=== PATIENT | female | born 1995 | race Caucasian/White ===

== ENCOUNTER 2016-05-02 00:11 | Emergency (ER) | payer SELFPAY ==
[~2016-05-02] VITALS: Ht 144.8 cm; Wt 88.5 kg
[2016-05-02] MEDS ORDERED: ONDANSETRON 2MG/ML, 2ML ONE (00:57)
[2016-05-02] MEDS ORDERED: SODIUM CHLORIDE 0.9% 1,000ML IVBOLUS ONE ×2 (01:00→03:00)
[2016-05-02] MEDS ORDERED: SODIUM CHLORIDE FLUSH 10ML SYR IVF ONE (01:00)
[2016-05-02] MEDS ORDERED: ONDANSETRON 2MG/ML, 2ML IVPush ONE (01:00)
[2016-05-02 01:23] LABS: HEMOGLOBIN 12.1 g/dL (11.7-16.4)
[2016-05-02 01:33] LABS: ASPARTATE AMINO TRANSFERASE 15 U/L (15-37); BLOOD UREA NITROGEN 9 mg/dL (7-18)
[2016-05-02] MEDS ORDERED: KETOROLAC 30 MG/1 ML ONE (02:20)
[2016-05-02 02:27] VITALS: BP 124/75
[2016-05-02 02:29] LABS: PATH.CAST-FLAG NOT PRESENT; SPERM-FLAG NOT PRESENT; SRC-FLAG NOT PRESENT; XTAL-FLAG NOT PRESENT; YLC-FLAG NOT PRESENT
[2016-05-02] MEDS ORDERED: KETOROLAC 30 MG/1 ML IVPush ONE (02:30)
== END 2016-05-02 03:03 | disposition home or self-care (01) ==
LOC: ED 01:41
DX: K29.00 Acute gastritis without bleeding (principal); K59.00 Constipation, unspecified
CPT/HCPCS: 36415; 74020; 80053; 83690; 84703; 85025; 87077; 87086; 96361; 96374; 99285; J1885; J7030; 87186

== ENCOUNTER 2017-08-30 15:45 | Inpatient (IN) | payer OTHER ==
[~2017-08-30] VITALS: Ht 144.8 cm; Wt 89.6 kg
[~2017-08-30 15:45] MED LIST: AZITHROMYCIN 500 MG TABLET PO ONE
[2017-08-30] MEDS ORDERED: ONDANSETRON 2MG/ML, 2ML IVPush ONE (16:00)
[2017-08-30] MEDS ORDERED: SODIUM CHLORIDE FLUSH 10ML SYR IVF ONE (16:00)
[2017-08-30] MEDS ORDERED: SODIUM CHLORIDE 0.9% 1,000ML IVBOLUS ONE (16:00)
[2017-08-30] MEDS ORDERED: DEXAMETHASONE 4 MG/ML, 5ML ONE (16:19)
[2017-08-30] MEDS ORDERED: ONDANSETRON 2MG/ML, 2ML ONE (16:19)
[2017-08-30] MEDS ORDERED: KETOROLAC 30 MG/1 ML ONE (16:19)
[2017-08-30 16:26] LABS: MEAN CORPUSCULAR HEMOGLOBIN 25.8 pg (27.0-34.8); MEAN CORPUSCULAR HGB CONC 33.9 g/dL (32.4-35.8); PLATELET COUNT 415 x10^3/uL (130-400); RED BLOOD COUNT 5.21 x10^6/uL (3.82-5.3); RED CELL DISTRIBUTION WIDTH 13.7 % (9.6-15.2)
[2017-08-30] MEDS ORDERED: maalox/diphenh/lido/sucralfate 5 ML PO PRN (16:30)
[2017-08-30] MEDS ORDERED: KETOROLAC 30 MG/1 ML IVPush ONE (16:30)
[2017-08-30] MEDS ORDERED: DEXAMETHASONE 4 MG/ML, 1ML IVPush ONE (16:30)
[2017-08-30 16:36] LABS: ALANINE AMINOTRANSFERASE 24 U/L (12-78); ALBUMIN 3.9 g/dL (3.4-5.0); ANION GAP 10 mmol/L (5-15); CALCIUM 9.3 mg/dL (8.5-10.1); CHLORIDE 105 mmol/L (98-107); CREATININE 0.65 mg/dL (0.55-1.02)
[2017-08-30 16:41] LABS: ALKALINE PHOSPHATASE 94 U/L (45-117); BILIRUBIN,TOTAL 0.8 mg/dL (0.2-1.0); TOTAL PROTEIN 8.6 g/dL (6.4-8.2)
[2017-08-30 16:42] LABS: BASOPHILS # (AUTO) 0.07 x10^3/uL (0-0.1); BASOPHILS % (AUTO) 0 % (0-1); EOSINOPHILS # (AUTO) 0.04 x10^3/uL (0-0.4); EOSINOPHILS % (AUTO) 0 % (1-7); LYMPHOCYTES % (AUTO) 16 % (22-44); MD SCAN; MONOCYTES # (AUTO) 0.95 x10^3/uL (0.2-0.8); MONOCYTES % (AUTO) 5 % (2-9); NEUTROPHILS # (AUTO) 15.25 x10^3/uL (1.8-6.8); NEUTROPHILS % (AUTO) 78 % (42-75)
[2017-08-30] MEDS ORDERED: AMPICILLIN/SULBACTAM 3 GM in SODIUM CHLORIDE 0.9% 100 ML IV ONE (17:30)
[2017-08-30] MEDS ORDERED: POLYETHYLENE GLYCOL 17 GM PACKET PO PRN (18:30)
[2017-08-30] MEDS ORDERED: BISACODYL 10 MG SUPP PR PRN (18:30)
[2017-08-30] MEDS ORDERED: ONDANSETRON 2MG/ML, 2ML IVPush PRN (18:30)
[2017-08-30] MEDS ORDERED: ACETAMINOPHEN 325 MG TABLET PO PRN (18:30)
[2017-08-30] MEDS ORDERED: KETOROLAC 30 MG/1 ML IVPush PRN (19:00)
[2017-08-30] MEDS ORDERED: PLEASE ENTER HEIGHT MC SCH (19:00)
[2017-08-30 19:55] VITALS: BP 98/61
[2017-08-30 20:20] LABS: CULTURE INDICATED? YES; MICROSCOPIC INDICATED
[2017-08-30] MEDS: PLEASE ENTER HEIGHT MC SCH (21:10)
[2017-08-30] MEDS: SODIUM CHLORIDE 0.9% 1,000 ML IV SCH (21:10)
[2017-08-30] MEDS ORDERED: AZITHROMYCIN 500 MG TABLET PO ONE (22:00)
[2017-08-31 01:01] VITALS: BP 111/57
[2017-08-31] MEDS: SODIUM CHLORIDE 0.9% 1,000 ML IV SCH (05:10)
[2017-08-31 05:42] LABS: BASOPHILS # (AUTO) 0.03 x10^3/uL (0-0.1); BASOPHILS % (AUTO) 0 % (0-1); EOSINOPHILS % (AUTO) 0 % (1-7); LYMPHOCYTES # (AUTO) 1.43 x10^3/uL (1-3.4); LYMPHOCYTES % (AUTO) 12 % (22-44); MD NO; MEAN CORPUSCULAR HEMOGLOBIN 25.8 pg (27.0-34.8); MEAN CORPUSCULAR HGB CONC 33.5 g/dL (32.4-35.8); MEAN CORPUSCULAR VOLUME 77.1 fL (80-100); MEAN PLATELET VOLUME 8.3 fL (7.4-10.4); MONOCYTES # (AUTO) 0.37 x10^3/uL (0.2-0.8); MONOCYTES % (AUTO) 3 % (2-9); NEUTROPHILS # (AUTO) 10.27 x10^3/uL (1.8-6.8); NEUTROPHILS % (AUTO) 85 % (42-75); PLATELET COUNT 347 x10^3/uL (130-400); RED BLOOD COUNT 4.24 x10^6/uL (3.82-5.3); RED CELL DISTRIBUTION WIDTH 14.1 % (9.6-15.2)
[2017-08-31 05:46] LABS: ALANINE AMINOTRANSFERASE 20 U/L (12-78); ANION GAP 8 mmol/L (5-15); CALCIUM 8.4 mg/dL (8.5-10.1); CHLORIDE 113 mmol/L (98-107)
[2017-08-31 05:48] LABS: ALKALINE PHOSPHATASE 72 U/L (45-117); BILIRUBIN,TOTAL 0.4 mg/dL (0.2-1.0); CREATININE 0.64 mg/dL (0.55-1.02); TOTAL PROTEIN 7.1 g/dL (6.4-8.2)
[2017-08-31] MEDS ORDERED: FERROUS SULFATE 325 MG TABLET PO SCH (08:00)
[2017-08-31 08:02] VITALS: BP 99/60
[2017-08-31] MEDS ORDERED: CEFTRIAXONE 250 MG IM ONE (08:30)
[2017-08-31] MEDS ORDERED: SENNA/DOCUSATE TABLET PO SCH (09:00)
[2017-08-31] MEDS ORDERED: DOXY100T PO (10:16)
== END 2017-08-31 13:10 | disposition home or self-care (01) | DRG 872 ==
LOC: ED 17:36 → EDIP 17:37 → ED 17:45 → 3NE 18:13 → DCLOUNGE 08-31 12:50
PROVIDERS: ADMIT Internal Medicine; ATTEND Internal Medicine
DX: A41.9 Sepsis, unspecified organism (principal); Z68.41 Body mass index [BMI] 40.0-44.9, adult; E87.1 Hypo-osmolality and hyponatremia; E66.9 Obesity, unspecified; E86.0 Dehydration; R13.10 Dysphagia, unspecified; D47.3 Essential (hemorrhagic) thrombocythemia
CPT/HCPCS: 36415; 71046; 80053; 81001; 82728; 83540; 83550; 83605; 83690; 84703; 85025; 85379; 87040; 87070; 87081; 87086; 87147; 87491; 87591; 87880; 96361; 96374; 96375; J0295; J0696; J1100; J1885; J2405; J7030

== ENCOUNTER 2017-09-16 11:10 | Emergency (ER) | payer SELFPAY ==
[~2017-09-16] VITALS: Ht 147.3 cm; Wt 86.4 kg
[~2017-09-16 11:10] MED LIST changes: -AZITHROMYCIN 500 MG TABLET PO ONE; +DOXY100T PO
[2017-09-16 12:34] LABS: BASOPHILS # (AUTO) 0.03 x10^3/uL (0-0.1); BASOPHILS % (AUTO) 0 % (0-1); EOSINOPHILS # (AUTO) 0.18 x10^3/uL (0-0.4); EOSINOPHILS % (AUTO) 2 % (1-7); LYMPHOCYTES # (AUTO) 3.02 x10^3/uL (1-3.4); LYMPHOCYTES % (AUTO) 37 % (22-44); MD NO; MEAN CORPUSCULAR HEMOGLOBIN 25.7 pg (27.0-34.8); MEAN CORPUSCULAR HGB CONC 33.8 g/dL (32.4-35.8); MEAN PLATELET VOLUME 7.9 fL (7.4-10.4); MONOCYTES # (AUTO) 0.41 x10^3/uL (0.2-0.8); MONOCYTES % (AUTO) 5 % (2-9); NEUTROPHILS # (AUTO) 4.63 x10^3/uL (1.8-6.8); NEUTROPHILS % (AUTO) 56 % (42-75); PLATELET COUNT 363 x10^3/uL (130-400); RED BLOOD COUNT 4.39 x10^6/uL (3.82-5.3); RED CELL DISTRIBUTION WIDTH 14.4 % (9.6-15.2)
[2017-09-16 12:46] LABS: ALBUMIN 3.4 g/dL (3.4-5.0); ANION GAP 7 mmol/L (5-15); CALCIUM 8.5 mg/dL (8.5-10.1); CHLORIDE 109 mmol/L (98-107)
[2017-09-16 12:52] LABS: ALANINE AMINOTRANSFERASE 31 U/L (12-78); ALKALINE PHOSPHATASE 82 U/L (45-117); BILIRUBIN,TOTAL 0.4 mg/dL (0.2-1.0); CREATININE 0.55 mg/dL (0.55-1.02); TOTAL PROTEIN 7.4 g/dL (6.4-8.2)
[2017-09-16 13:17] LABS: MICROSCOPIC NOT IND
[2017-09-16 13:29] LABS: CULTURE INDICATED? NO
[2017-09-16 14:33] VITALS: BP 119/76
== END 2017-09-16 14:43 | disposition home or self-care (01) ==
LOC: ED 11:57
DX: K25.3 Acute gastric ulcer without hemorrhage or perforation (principal)
CPT/HCPCS: 36415; 80053; 81003; 83690; 84703; 85025; 86677; 99284

== ENCOUNTER 2017-11-05 12:37 | Emergency (ER) | payer SELFPAY ==
[~2017-11-05] VITALS: Ht 147.3 cm; Wt 91.6 kg
[2017-11-05 12:58] VITALS: BP 116/66
[2017-11-05] MEDS ORDERED: METOCLOPRAMIDE 5 MG/ML, 2ML ONE (13:27)
[2017-11-05] MEDS ORDERED: KETOROLAC 30 MG/1 ML ONE (13:27)
[2017-11-05] MEDS ORDERED: DIPHENHYDRAMINE 50 MG/ML, 1ML ONE (13:27)
[2017-11-05] MEDS ORDERED: DIPHENHYDRAMINE 50 MG/ML, 1ML IVPush ONE (13:30)
[2017-11-05] MEDS ORDERED: METOCLOPRAMIDE 5 MG/ML, 2ML IVPush ONE (14:00)
[2017-11-05] MEDS ORDERED: SODIUM CHLORIDE 0.9% 1,000ML IVBOLUS ONE (14:00)
[2017-11-05] MEDS ORDERED: KETOROLAC 30 MG/1 ML IVPush ONE (14:00)
[2017-11-05] MEDS ORDERED: SODIUM CHLORIDE FLUSH 10ML SYR IVF ONE (14:30)
== END 2017-11-05 14:18 | disposition home or self-care (01) ==
LOC: ED 14:12
DX: G43.909 Migraine, unspecified, not intractable, without status migrainosus (principal)
CPT/HCPCS: 96374; 96375; 99284; J1200; J1885; J2765; J7030

== ENCOUNTER 2018-05-24 19:15 | Emergency (ER) | payer SELFPAY ==
[~2018-05-24] VITALS: Ht 149.9 cm; Wt 92.5 kg
--- NOTE | 2018-05-24 19:48 | NUR ---
PT PRESENTED WITH C/O RIGHT ANKLE PAIN X 1 WEEK AFTER FALL, DENIES BLOOD THINNERS. RIGHT LEG ELEVATED AND ICE PAVK APPLIED, MONITORS APPLIED, SIDERAILS UP X2, CALL LIGHT WITHIN REACH. AWAITING XRAY RESULTS
[2018-05-24] MEDS ORDERED: MIGRAINE MEDICATION (19:50)
[2018-05-24] MEDS ORDERED: BIRTHCONTROL (19:50)
--- NOTE | 2018-05-24 20:00 | NUR ---
ADDITIONAL ORDER RECEIVED FOR CT
--- NOTE | 2018-05-24 20:11 | NUR ---
PT AT CT
[2018-05-24 20:41] VITALS: BP 97/54
--- NOTE | 2018-05-24 20:42 | NUR ---
PT RESTING CALMLY, MONITORS IN PLACE, CALL LIGHT WITHIN REACH.
--- NOTE | 2018-05-24 21:26 | NUR ---
WASHING MACHINE ASSEMBLER AT PT'S BEDSIDE FOR ACEWRAP, SPLINT AND CRUTCHES
== END 2018-05-24 21:32 | disposition home or self-care (01) ==
LOC: ED 20:54
DX: S83.91XA Sprain of unspecified site of right knee, initial encounter (principal); S93.491A Sprain of other ligament of right ankle, initial encounter; G43.909 Migraine, unspecified, not intractable, without status migrainosus; W19.XXXA Unspecified fall, initial encounter; Y93.01 Activity, walking, marching and hiking; Y92.009 Unspecified place in unspecified non-institutional (private) residence as the place of occurrence of the external cause; Y99.8 Other external cause status
CPT/HCPCS: 70450; 99284

== ENCOUNTER 2018-07-24 13:33 | Emergency (ER) | payer SELFPAY ==
[~2018-07-24] VITALS: Ht 149.9 cm; Wt 92.6 kg
[~2018-07-24 13:33] MED LIST changes: +BIRTHCONTROL; +MIGRAINE MEDICATION
[2018-07-24] MEDS ORDERED: ONDANSETRON ODT 4 MG ONE (13:59)
[2018-07-24] MEDS ORDERED: ACETAMINOPHEN 500 MG TABLET ONE (13:59)
[2018-07-24] MEDS ORDERED: MAALOX/HYOSCYAMINE/LIDOCAINE 45 ML BTL ONE (13:59)
[2018-07-24] MEDS ORDERED: MAALOX/HYOSCYAMINE/LIDOCAINE 45 ML BTL PO ONE (14:00)
[2018-07-24] MEDS ORDERED: ONDANSETRON ODT 4 MG PO ONE (14:00)
[2018-07-24] MEDS ORDERED: ACETAMINOPHEN 500 MG TABLET PO ONE (14:00)
--- NOTE | 2018-07-24 14:08 | NUR ---
Agree with head miller note. Pt assessed, medicated as ordered. Labs and urine sent. Will cont to monitor
[2018-07-24 14:15] LABS: BASOPHILS # (AUTO) 0.01 x10^3/uL (0-0.1); BASOPHILS % (AUTO) 0 % (0-1); EOSINOPHILS # (AUTO) 0.13 x10^3/uL (0-0.4); EOSINOPHILS % (AUTO) 1 % (1-7); LYMPHOCYTES # (AUTO) 1.64 x10^3/uL (1-3.4); LYMPHOCYTES % (AUTO) 15 % (22-44); MD NO; MEAN CORPUSCULAR HEMOGLOBIN 26.4 pg (27.0-34.8); MEAN CORPUSCULAR HGB CONC 33.4 g/dL (32.4-35.8); MEAN CORPUSCULAR VOLUME 79.2 fL (80-100); MEAN PLATELET VOLUME 7.9 fL (7.4-10.4); MONOCYTES # (AUTO) 0.37 x10^3/uL (0.2-0.8); MONOCYTES % (AUTO) 3 % (2-9); NEUTROPHILS # (AUTO) 8.71 x10^3/uL (1.8-6.8); NEUTROPHILS % (AUTO) 80 % (42-75); PLATELET COUNT 385 x10^3/uL (130-400); RED CELL DISTRIBUTION WIDTH 14.7 % (9.6-15.2)
[2018-07-24 14:25] LABS: ALANINE AMINOTRANSFERASE 26 U/L (12-78); ALBUMIN 3.8 g/dL (3.4-5.0); ANION GAP 9 mmol/L (5-15); CALCIUM 8.8 mg/dL (8.5-10.1); CHLORIDE 106 mmol/L (98-107); CREATININE 0.61 mg/dL (0.55-1.02)
[2018-07-24 14:27] LABS: ALKALINE PHOSPHATASE 92 U/L (45-117); BILIRUBIN,TOTAL 0.6 mg/dL (0.2-1.0); TOTAL PROTEIN 7.7 g/dL (6.4-8.2)
[2018-07-24 14:47] VITALS: BP 118/80
--- NOTE | 2018-07-24 14:47 | NUR ---
Pt reports relief in epigastric pain after GI cocktail. LLQ/flank pain still present. Will cont to monitor
[2018-07-24 15:01] LABS: HCG UR SG 1.024 (1.003-1.030); MICROSCOPIC AUTO
[2018-07-24 15:05] LABS: CULTURE INDICATED? YES
[2018-07-24] MEDS ORDERED: HYDROcodone/APAP 5/325 TABLET PO ONE (15:30)
[2018-07-24] MEDS ORDERED: KETOROLAC 30 MG/1 ML IM ONE (15:30)
[2018-07-24] MEDS ORDERED: KETOROLAC 30 MG/1 ML ONE (15:39)
[2018-07-24] MEDS ORDERED: HYDROcodone/APAP 5/325 TABLET ONE (15:40)
[2018-07-24] MEDS ORDERED: OXYcodone 5 MG/5 ML ORAL.SOL UDC ONE (15:55)
[2018-07-24] MEDS ORDERED: OXYcodone 5 MG/5 ML ORAL.SOL UDC PO PRN (16:00)
--- NOTE | 2018-07-24 16:14 | NUR ---
Pt refusing pain medication, aware
== END 2018-07-24 16:56 | disposition home or self-care (01) ==
LOC: ED 14:38
DX: K29.00 Acute gastritis without bleeding (principal)
CPT/HCPCS: 36415; 74176; 80053; 81001; 81025; 83690; 85025; 87077; 87086; 99284; Q0162; 87186

== ENCOUNTER 2019-04-15 14:10 | Emergency (ER) | payer SELFPAY ==
[~2019-04-15] VITALS: Ht 149.9 cm; Wt 101.5 kg
[2019-04-15 14:12] VITALS: BP 125/70
--- NOTE | 2019-04-15 14:41 | NUR ---
L&D RN AT BEDSIDE TO EVALUATE PT SHE REPORTS PELVIC PAIN AND GENERALIZED ITCHING IN ADDTIION TO UPPER RESPIRATORY SYMPTOMS.
--- NOTE | 2019-04-15 14:47 | NUR ---
L&D COREY HIGGINS HAS FINISHED HEART TONE ASSESSMENT WHICH WAS WITHIN NORMAL LIMITS (HR 150'S), PER L&D RN PT DOES NOT NEED TO BEEN SEEN AT L&D AFTER ED VISIT. SAW BRITO.
[2019-04-15 15:05] LABS: RAPID INFLUENZA A Negative (Negative); RAPID INFLUENZA B Negative (Negative)
--- NOTE | 2019-04-15 15:06 | NUR ---
PT GIVEN URINE CUP AND INSTRUCTED TO PROVIDE CLEAN CATCH URINE SAMPLE. PT UP TO BATHROOM AT THIS TIME, GAIT STEADY.
--- NOTE | 2019-04-15 15:24 | NUR ---
REPORT GIVEN TO COREY MOLINA, AWAITING UA AND DISPO. PT A&O, RESPS EVEN AND UNLABORED, ASPEN.
[2019-04-15 15:49] LABS: MICROSCOPIC INDICATED
[2019-04-15 15:52] LABS: CULTURE INDICATED? YES
== END 2019-04-15 16:07 | disposition home or self-care (01) ==
LOC: ED 16:00
DX: O99.513 Diseases of the respiratory system complicating pregnancy, third trimester (principal); O23.13 Infections of bladder in pregnancy, third trimester; Z3A.32 32 weeks gestation of pregnancy
CPT/HCPCS: 81001; 87081; 87086; 87400; 87880; 99283

== ENCOUNTER 2020-02-22 18:36 | Emergency (ER) | payer SELFPAY ==
[~2020-02-22] VITALS: Ht 149.9 cm; Wt 96.0 kg
[2020-02-22] MEDS ORDERED: CARBAMIDE PEROXIDE EAR DROPS 6.5%, 15ML RIGHT EAR ONE (19:30)
[2020-02-22] MEDS ORDERED: CARBAMIDE PEROXIDE EAR DROPS 6.5%, 15ML ONE (19:42)
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
--- NOTE | 2020-02-22 20:12 | NUR ---
DEBROX INSTILLED. PT IN LT LATERAL POSTION
--- NOTE | 2020-02-22 20:55 | NUR ---
PROFESSIONAL SOCCER PLAYER AT FOR EAR IRRIGATION
--- NOTE | 2020-02-22 21:13 | NUR ---
GEOFF XIE AT BS
[2020-02-22 21:20] VITALS: BP 120/72
== END 2020-02-22 21:33 | disposition home or self-care (01) ==
LOC: ED 19:41
DX: T16.1XXA Foreign body in right ear, initial encounter (principal); G43.909 Migraine, unspecified, not intractable, without status migrainosus; H60.501 Unspecified acute noninfective otitis externa, right ear; X58.XXXA Exposure to other specified factors, initial encounter; Y93.89 Activity, other specified; Y92.89 Other specified places as the place of occurrence of the external cause; Y99.8 Other external cause status
CPT/HCPCS: 99284

== ENCOUNTER 2020-10-06 12:51 | Emergency (ER) | payer OTHER | END 2020-10-06 14:27 | disposition left against medical advice (07) | LOC: ED 14:20 | DX: R10.9 Unspecified abdominal pain (principal); M54.9 Dorsalgia, unspecified; Z53.21 Procedure and treatment not carried out due to patient leaving prior to being seen by health care provider ==